=== PATIENT | male | born 1965 | race Two or more races ===

== ENCOUNTER 2023-12-19 17:05 | Inpatient (IN) | payer MEDICAID ==
[~2023-12-19] VITALS: Ht 175.3 cm; Wt 100.2 kg
[2023-12-19 20:00] VITALS: BP 152/102; PULSE 87; RESP 20; TEMP 99.3; O2SAT 97
[2023-12-19 20:05] VITALS: BP 149/105; PULSE 88; RESP 19; O2SAT 96
[2023-12-19] MEDS ORDERED: DOCUSATE SODIUM 283 MG/5 ML MINI-ENEMA PR PRN (20:15)
[2023-12-19 21:00] VITALS: BP 151/98; PULSE 87; RESP 19; TEMP 98.9; O2SAT 97
[2023-12-19] MEDS ORDERED: HydrALAZINE HCL 10 MG TABLET PO PRN (21:00)
[2023-12-19 21:05] VITALS: BP 136/81; PULSE 85; RESP 19; O2SAT 97
[2023-12-19] MEDS: SENNOSIDES 8.6 MG TABLET PO SCH (21:27)
[2023-12-19] MEDS: DOCUSATE SODIUM 100 MG CAPSULE PO SCH (21:27)
[2023-12-19] MEDS: MELATONIN 3 MG TABLET PO PRN (21:27)
[2023-12-19] MEDS: HEPARIN SODIUM,PORCINE 5,000 UNITS/ML VIAL SQ SCH (21:27)
[2023-12-20 07:02] LABS: BASOPHILS % (AUTO) 0.6 % (0.0-2.0); HEMATOCRIT 39.3 % (41-53); HEMOGLOBIN 13.3 g/dL (13.5-17.5); LYMPHOCYTES # (AUTO) 1.7 K/uL (1.0-4.8); LYMPHOCYTES % (AUTO) 25.5 % (22.0-44.0); MEAN CORPUSCULAR HEMOGLOBIN 29.5 pg (26.0-34.0); MEAN CORPUSCULAR HGB CONC 33.9 G/dL (31.0-37.0); MEAN CORPUSCULAR VOLUME 87 fL (80-100); MONOCYTES # (AUTO) 0.7 K/uL (0.1-1.0); MONOCYTES % (AUTO) 10.8 % (2.0-9.0); NEUTROPHILS # (AUTO) 3.9 K/uL (1.8-7.7); NEUTROPHILS % (AUTO) 59.1 % (40.0-70.0); PLATELET COUNT (AUTO) 228 K/uL (150-450); RED BLOOD CELL COUNT(AUTO) 4.51 MIL/uL (4.50-5.90); RED CELL DISTRIBUTION WIDTH 12.9 % (11.5-14.5); WHITE BLOOD COUNT (AUTO) 6.5 K/uL (4.5-11.0)
[2023-12-20 07:20] LABS: ALANINE AMINOTRANSFERASE 41 U/L (12-78); ALBUMIN 3.5 g/dL (3.4-5.0); ALKALINE PHOSPHATASE 116 U/L (46-116); ANION GAP 9 mmol/L (8-16); ASPARTATE AMINOTRANSFERASE 22 U/L (15-37); BILIRUBIN,TOTAL 0.5 mg/dL (0.1-1.0); CALCIUM, TOTAL 8.9 mg/dL (8.8-10.5); CARBON DIOXIDE 28 mmol/L (22-29); CHLORIDE 107 mmol/L (98-107); CREATININE 0.93 mg/dL (0.60-1.30); GLOMERULAR FILTR. RATE CALC > 60 mL/min (>60); GLUCOSE,RANDOM 97 mg/dL (70-110); POTASSIUM 3.8 mmol/L (3.5-5.1); SODIUM SERUM 144 mmol/L (136-145); TOTAL PROTEIN, SERUM 6.9 g/dL (6.4-8.2); UREA NITROGEN, BLOOD 16 mg/dL (7-18)
[2023-12-20] MEDS: ETHYL ALCOHOL 62% ANTISEPTIC NASAL SANITIZER 0.6 ML AMPUL NASAL SCH (07:59)
[2023-12-20] MEDS: LISINOPRIL 20 MG TABLET PO SCH (07:59)
[2023-12-20] MEDS: POLYETHYLENE GLYCOL 3350 17 GM PACKET PO SCH (07:59)
[2023-12-20 08:05] VITALS: BP_SYST 131; BP_SYST 133; BP_DIAS 68; BP_DIAS 76; PULSE 76; PULSE 85; RESP 18; TEMP 98.2; O2SAT 98
[2023-12-20] MEDS: ACETAMINOPHEN 325 MG TABLET PO PRN (08:34)
[2023-12-20] MEDS: FAMOTIDINE 20 MG TABLET PO SCH (10:04)
[2023-12-20 11:30] VITALS: BP 128/70; PULSE 76; RESP 18; TEMP 98; O2SAT 98
[2023-12-20] MEDS: TraMADol HCL 50 MG TABLET PO PRN (14:31)
[2023-12-20 20:00] VITALS: BP 118/84; PULSE 90; RESP 20; TEMP 98.2; O2SAT 96
[2023-12-20] MEDS: DOCUSATE SODIUM 250 MG CAPSULE PO SCH (21:15)
[2023-12-21 08:34] VITALS: BP 134/86; PULSE 78; RESP 20; TEMP 97.8; O2SAT 97
[2023-12-21 09:22] VITALS: O2SAT 97
[2023-12-21 12:30] VITALS: RESP 18
[2023-12-21 16:20] VITALS: RESP 20
[2023-12-21 20:00] VITALS: BP 130/90; PULSE 84; RESP 18; TEMP 97.9
[2023-12-21 21:54] VITALS: O2SAT 97
[2023-12-22 08:01] VITALS: BP 131/68; PULSE 76; RESP 18; TEMP 98.2
[2023-12-22 09:33] VITALS: O2SAT 98
[2023-12-22 11:30] VITALS: BP 136/64; PULSE 81; RESP 18; TEMP 98.1
[2023-12-22] MEDS: HYDROCORTISONE 2.5% 30 GM CREAM TP PRN (12:25)
[2023-12-22 20:00] VITALS: O2SAT 98
[2023-12-22 21:00] VITALS: BP 112/88; PULSE 87; RESP 20; TEMP 98.2; O2SAT 98
[2023-12-23 08:15] VITALS: BP 132/82; PULSE 89; RESP 19; TEMP 98.2; O2SAT 97
[2023-12-23] MEDS: CYCLOBENZAPRINE HCL 10 MG TABLET PO PRN (08:32)
[2023-12-23 08:43] VITALS: O2SAT 97
[2023-12-23] MEDS: MULTIVITAMINS WITH MINERALS, THERAPEUTIC TABLET PO SCH (12:15)
[2023-12-23] MEDS: OMEGA-3/DHA/EPA/FISH OIL 1,000 MG CAPSULE PO SCH (12:15)
[2023-12-23 20:00] VITALS: BP 144/59; PULSE 96; RESP 20; TEMP 98.4; O2SAT 97
[2023-12-24 07:45] VITALS: BP 132/80; PULSE 81; RESP 19; TEMP 97.6; O2SAT 97
[2023-12-24 08:20] VITALS: O2SAT 97
[2023-12-24 21:00] VITALS: BP 140/62; PULSE 91; RESP 19; TEMP 97.8; O2SAT 98
[2023-12-24 22:00] VITALS: O2SAT 98
[2023-12-25 08:05] VITALS: BP 125/74; PULSE 83; RESP 18; TEMP 98.7; O2SAT 96
[2023-12-25 13:25] VITALS: RESP 18
[2023-12-25] MEDS: DICLOFENAC SODIUM 1% 100 GM GEL [2GM] TP SCH (15:42)
[2023-12-25 20:02] VITALS: BP 126/96; PULSE 90; RESP 20; TEMP 98.7; O2SAT 98
[2023-12-25 20:37] VITALS: O2SAT 98
[2023-12-25 22:00] VITALS: BP 136/82
[2023-12-26] MEDS ORDERED: FAMO20 PO (03:38)
[2023-12-26] MEDS ORDERED: MV-M1TAB2 PO (03:47)
[2023-12-26] MEDS ORDERED: LISI-894 PO (03:47)
[2023-12-26 08:00] VITALS: BP 150/73; PULSE 84; RESP 19; TEMP 98.1; O2SAT 98
[2023-12-26 09:00] VITALS: BP 132/74; PULSE 84; RESP 19
[2023-12-26 20:03] VITALS: BP 131/94; PULSE 92; RESP 18; TEMP 97.8; O2SAT 97
[2023-12-26 21:28] VITALS: O2SAT 97
[2023-12-27 08:00] VITALS: BP 125/77; PULSE 73; RESP 18; TEMP 98.1; O2SAT 98
[2023-12-27 09:34] VITALS: O2SAT 98
[2023-12-27 20:00] VITALS: O2SAT 97
[2023-12-27 21:00] VITALS: BP 131/90; PULSE 85; RESP 18; TEMP 98.3; O2SAT 97
[2023-12-28 08:30] VITALS: BP 126/76; PULSE 72; RESP 18; TEMP 98.3; O2SAT 98
[2023-12-28 20:03] VITALS: BP 122/86; PULSE 95; RESP 18; TEMP 98; O2SAT 98
[2023-12-28 21:34] VITALS: O2SAT 95
[2023-12-29 08:00] VITALS: BP 136/93; PULSE 77; RESP 18; TEMP 97.4; O2SAT 96
[2023-12-29 10:45] VITALS: O2SAT 96
[2023-12-29 20:02] VITALS: BP 134/90; PULSE 92; RESP 19; TEMP 98.1; O2SAT 98
[2023-12-29 20:10] VITALS: O2SAT 98
[2023-12-30 08:00] VITALS: BP 137/83; PULSE 74; RESP 18; TEMP 98; O2SAT 96
[2023-12-30 10:01] VITALS: BP 137/83; PULSE 74; RESP 18; TEMP 98; O2SAT 96
[2023-12-30 20:00] VITALS: BP 129/75; PULSE 91; RESP 20; TEMP 98.2; O2SAT 97
[2023-12-31 08:05] VITALS: BP 127/64; PULSE 75; RESP 18; TEMP 98.1; O2SAT 98
[2023-12-31 09:38] VITALS: O2SAT 98
[2023-12-31] MEDS ORDERED: DICL100G60 TP (10:24)
[2023-12-31] MEDS ORDERED: OMEG-135 PO (10:24)
[2023-12-31] MEDS ORDERED: FAMO20 PO (10:24)
[2023-12-31] MEDS ORDERED: Multivitamins/Minerals PO (10:24)
[2023-12-31] MEDS ORDERED: LISI-894 PO (10:24)
[2023-12-31 20:00] VITALS: BP 130/86; PULSE 90; RESP 20; TEMP 98; O2SAT 100
[2024-01-01 08:05] VITALS: BP 133/60; PULSE 70; RESP 18; TEMP 98.2; O2SAT 98
[2024-01-01 10:41] VITALS: O2SAT 98
[2024-01-01 11:05] VITALS: BP 124/64; PULSE 72; RESP 18; TEMP 98.2; O2SAT 98
== END 2024-01-01 12:15 | disposition home or self-care (01) | DRG 58 ==
LOC: 2WR 19:55
PROVIDERS: ADMIT Physical Medicine & Rehabilitation; ATTEND Physical Medicine & Rehabilitation
DX: G81.94 Hemiplegia, unspecified affecting left nondominant side (principal); I61.8 Other nontraumatic intracerebral hemorrhage; D63.8 Anemia in other chronic diseases classified elsewhere; I10 Essential (primary) hypertension; K59.00 Constipation, unspecified; R29.703 NIHSS score 3; M25.511 Pain in right shoulder; R41.89 Other symptoms and signs involving cognitive functions and awareness; R26.9 Unspecified abnormalities of gait and mobility; E78.5 Hyperlipidemia, unspecified; Z59.02 Unsheltered homelessness; Z63.4 Disappearance and death of family member
CPT/HCPCS: 80053; 85025; 87081; 92523; 97110; 97112; 97116; 97163; 97166; 97530; 97535; 99366; J1644